=== PATIENT | female | born 1970 | race Caucasian/White ===

== ENCOUNTER → 2024-11-14 16:36 | Outpatient (REF) | payer OTHER, SELFPAY | LOC: RAD 16:36 | PROVIDERS: ATTENDING PHYSICIAN Family Medicine | DX: M54.2 Cervicalgia (principal) | CPT/HCPCS: 72052 ==

== ENCOUNTER 2024-12-08 17:02 | Emergency (ER) | payer OTHER, SELFPAY ==
[2024-12-08 17:07] VITALS: BP 198/114
[2024-12-08 18:26] VITALS: BP 174/83
[2024-12-08 18:30] VITALS: BP 177/83; BMI 24.9
--- NOTE | 2024-12-08 19:13 | ED.GENMED ---
History of Present Illness
General
Chief Complaint: Back Pain
Source: patient
Time Seen by Provider: 12/08/24 18:54
History of Present Illness
History of Present Illness:
54-year-old female with past medical history of hypertension, hypothyroidism, has recently been dealing with left cervical radiculopathy status post epidural injection this past Tuesday presenting to the ER due to continued pain within the and
axillary region, no relief with the epidural and Neurontin that were prescribed to her. Patient states that the pain is not any different than what she has been experiencing over the last month, no chest pain or shortness of breath. Last dose of
her Neurontin was around 3 PM today. No fevers, no chills, no rigors. She denies any traumatic injuries. Patient had x-ray imaging in this emergency department as well as outpatient MRI.
Past History
Past History
ED Past Medical History: HTN and Hypothyroidism
ED Past Surgical History: Gynecological
Social History
Tobacco: Non-smoker
Alcohol: Occasional
Drug: None
Personal:
Living: with family
Review of Systems
Review of Systems
All Other Systems: ROS reviewed and negative except as documented in HPI and ROS
Phy Exam
Physical Exam
Physical Exam:
GENERAL: Alert , in no apparent distress
EYE: conjunctiva clear
NECK: Supple, generalized tenderness within the left paracervical
ENT: o/p clr, mmm.
CARDIAC: Regular rate and rhythm
LUNGS: Clear breath sounds bilaterally, no acute respiratory distress, no wheezes/rales/rhonchi
NEUROLOGICAL: Alert and oriented
SKIN: Warm and dry, skin intact.
MUSCULOSKELETAL: well perfused. Moves all extremities, sensory grossly intact to light touch
PSYCH: Normal and appropriate interaction.
Scores
Heart Failure Risk
Heart Failure Risk Score: Not Applicable
Heart Score for Chest Pain Patients
STEMI patient?: Not applicable
Withdrawal Assessment of Alcohol
Withdrawal Assessment Completed?: Not applicable
Course
Orders/Labs/Results
Orders:
Orders
12/08/24 19:06
Electrocardiogram (*1) Urgent
Reason for Study: Other
Other Reason for Exam: shoulder pain
EKG- Treatment ONCE
Ketorolac [Toradol] 60 mg IM NOW STA
Lidocaine [Lidocaine 4% Patch] 1 patch TOPICAL NOW STA
Apply Lidocaine patch(s) to:: left shoulder
Oxycodone/Acetaminophen [Percocet 5/325] 1 tablet PO NOW STA
Vital Signs
Initial and Last Documented VS:
Initial Vital Signs
Temp Pulse Resp BP Pulse Ox
98.5 F 85 20 198/114 98
12/08/24 17:07 12/08/24 17:07 12/08/24 17:07 12/08/24 17:07 12/08/24 17:07
Last Documented Vital Signs
Temp Pulse Resp BP Pulse Ox
98.5 F 79 15 177/83 97
12/08/24 17:07 12/08/24 18:30 12/08/24 18:30 12/08/24 18:30 12/08/24 19:46
MDM/Problems Addressed
Differential Diagnosis Includes:
- Cervical radiculopathy
- Peripheral neuropathy
- Atypical ACS
- Cord impingement
- Brachial plexus injury
MDM/Problems Addressed:
54-year-old female presenting to the ER for evaluation of continued left lateral neck pain, no relief with epidural done earlier in the week. Has outpatient prescription for Neurontin which is also not providing any relief. No focal neurologic
deficits here. Noted to be profoundly hypertensive on arrival, will check EKG although my suspicion for atypical ACS is quite low. Patient has already had x-ray and MRI imaging, I did have minimal concern for any emergent pathology. Will attempt
pain control here with Toradol, Percocet and topical lidocaine patch. Will send patient home with prescriptions for similar. Will likely need continued outpatient management.
*Pulse Oximetry
SaO2: 98
Oxygen Mode of Delivery: Room air
Patient hypoxic: no
*EKG
Comparison EKG: no comparison EKG present
Heart Rate: 80
Rate: normal
Rhythm: sinus
[place]: normal axis
Ischemia: no ischemia
*Critical Care Note
Total Time (30-74mins, 75-104mins- exclusive of procedures): Not Applicable
Data Reviewed
Review of Other/Old Records Reveals: Radiology Studies
Patient Management
Escalation/DeEscalation of care consider admission/obs:
EKG unremarkable. Blood pressure improved. Will send prescription for Percocet and Medrol pack to patient's pharmacy. Encouraged they contact [facility] on Tuesday. Aware of return precautions.
ED Attending Note
-
Portions of this chart may have been created with voice recognition software.� Occasional wrong word or��sound alike� substitutions may have occurred due to the inherent limitations of voice recognition software.
Discharge Plan
Departure
Patient Disposition: Home (Routine Discharge)
Date of Disposition: 12/08/24
Time of Disposition: 19:50
Patient with high blood pressure during this ER visit?: Yes
Discharge Problem:
Cervical radiculopathy
Instructions: Radiculopathy (DC)
Prescriptions:
New
oxycodone-acetaminophen [Percocet] 5-325 mg tablet
1 tab PO Q6HPRN PRN (Reason: pain) Qty: 8 0RF
methylprednisolone [Medrol (Maxi)] 4 mg tablets,dose pack
4 mg PO DIRECTED Qty: 21 0RF
oxycodone-acetaminophen [Percocet] 5-325 mg tablet
1 tab PO Q6HPRN PRN (Reason: pain) Qty: 8 0RF
Referrals:
Uri Gonzales DO [Family Provider, Family Practice]
Interventions
Interventions:
*Risk Screen - Suicide Last Done: 12/08/24 17:07
*General Assessment Last Done: 12/08/24 17:07
ED-Musculoskeletal Assessment Last Done: 12/08/24 18:30
Discharge Date and Time
Print Language: SWEDISH
[2024-12-08] MEDS: PERCOCET 5/325 1 TABLET PO (19:27)
[2024-12-08] MEDS: TORADOL 60 MG IM (19:27)
[2024-12-08] MEDS: LIDOCAINE 4% PATCH 1 PATCH TOPICAL (19:28)
== END 2024-12-08 20:26 | disposition home or self-care (01) ==
LOC: EMR 17:02
PROVIDERS: EMERGENCY PHYSICIAN Student in an Organized Health Care Education/Training Program; FAMILY PHYSICIAN Family Medicine
DX: M54.12 Radiculopathy, cervical region (principal); E03.9 Hypothyroidism, unspecified; I10 Essential (primary) hypertension
CPT/HCPCS: 96372; 99284; 93005